=== PATIENT | male | born 1955 | race Caucasian/White ===

== ENCOUNTER 2022-06-28 14:13 | Emergency (ER) | payer OTHER ==
[~2022-06-28] VITALS: Ht 172.7 cm; Wt 151.5 kg
[2022-06-28 14:47] VITALS: BP_SYST 151
[2022-06-28] MEDS ORDERED: KETOROLAC TROMETHAMINE 60 MG/2 ML VIAL IM ONE (15:15)
[2022-06-28] MEDS ORDERED: AMOX500C2 PO (19:16)
[2022-06-28] MEDS ORDERED: IBUP-1971 PO (19:16)
[2022-06-28 19:22] VITALS: BP_SYST 132
== END 2022-06-28 19:22 | disposition home or self-care (01) ==
LOC: SED 14:13
DX: S00.83XA Contusion of other part of head, initial encounter (principal); J32.0 Chronic maxillary sinusitis; W01.198A Fall on same level from slipping, tripping and stumbling with subsequent striking against other object, initial encounter; Y93.89 Activity, other specified; Y92.89 Other specified places as the place of occurrence of the external cause; Y99.8 Other external cause status
CPT/HCPCS: 99284; 70450; 71100; 73630; 70486; 76376; 96372; J1885